=== PATIENT | male | born 1955 | race Caucasian/White ===

== ENCOUNTER 2019-03-07 12:22 | Inpatient (IN) | payer OTHER ==
[2019-03-07 16:36] VITALS: BMI 23.7
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
[2019-03-07] MEDS ORDERED: METHADONE HCL 10 MG TABLET (FOR DETOX USE ONLY) PO ONE (19:45)
[2019-03-07] MEDS ORDERED: cloNIDine HCL 0.1 MG TABLET PO PRN (19:45)
[2019-03-07] MEDS: diazePAM 5 MG TABLET PO PRN (20:32)
[2019-03-07] MEDS ORDERED: ACETAMINOPHEN 325 MG TABLET (FP) PO PRN ×2 (21:09)
[2019-03-07] MEDS ORDERED: MAGNESIUM CITRATE 300 ML BOTTLE PO PRN (21:09)
[2019-03-07] MEDS ORDERED: BISMUTH SUBSALICYLATE 524 MG/30 ML UD PO PRN (21:09)
[2019-03-07] MEDS ORDERED: METHOCARBAMOL 500 MG TABLET PO PRN (21:09)
[2019-03-07] MEDS ORDERED: hydrOXYzine PAMOATE 25 MG CAPSULE (FP) PO PRN (21:09)
[2019-03-07] MEDS ORDERED: MAGNESIUM HYDROX 2400MG/30ML ORAL SUSPENSION 30 ML CUP PO PRN (21:09)
[2019-03-07] MEDS ORDERED: MELATONIN 5 MG TABLETS PO PRN (21:09)
[2019-03-07] MEDS ORDERED: IBUPROFEN 400 MG TABLET (FP) PO PRN (21:09)
[2019-03-07] MEDS ORDERED: MAG HYDROX/AL HYDROX/SIMETH 30 ML UNIT-DOSE CUP PO PRN (21:09)
[2019-03-07] MEDS ORDERED: MENTHOL/PHENOL 1 EACH UD MM PRN (21:09)
[2019-03-07] MEDS: THIAMINE HCL 100 MG TABLET (FP) PO SCH (22:02)
--- NOTE | 2019-03-08 08:47 | PN ---
BHS COWS - Scale Resting Pulse: 0= AL 80 or Below Sweatin= Chills/Flushing Restless Observation: 3= Extraneous Movement Pupil Size: 0= Normal to Room Light Bone or Joint Aches: 1= Mild Discomfort Runny Nose/ Eye Tearin= Runny Nose/Eyes GI Upset > 30mins: 0= None Tremor Observation of Outstretched Hands: 1= Tremor [place], Not Seen Yawning Observation: 0= None Anxiety or Irritability: 4=Extreme Anxiety Goose Flesh Skin: 0=Smooth Skin COWS Score: 12 S Progress Note (SOAP) Subjective: Patient c/o interrupted sleep, chills, agitation and anxious Objective: 03/08/19 08:47 Vital Signs Temperature 98.2 F 03/08/19 06:56 Pulse Rate 76 03/08/19 06:56 Respiratory Rate 18 03/08/19 06:56 Blood Pressure 124/74 03/08/19 06:56 O2 Sat by Pulse Oximetry (%) labs pending Assessment: 03/08/19 10:43 Patient Aox3 no acute distress, anxious agitated and disruptive at the nurses station EENT WNL, Poor dentition Full ROM no gait disturbance withdrawal sx Plan: increase fluids counseled regarding unit rules and expectations, behavior contract continue detox continue to monitor
[2019-03-08] MEDS ORDERED: METHADONE HCL 5 MG TABLET (FOR DETOX USE ONLY) ONE (09:20)
[2019-03-08] MEDS ORDERED: METHADONE HCL 10 MG TABLET (FOR DETOX USE ONLY) ONE (09:20)
[2019-03-08] MEDS ORDERED: METHADONE (DETOX) 20 MG, METHADONE (DETOX) 5 MG PO ONE (10:00)
[2019-03-08] MEDS: PANTOPRAZOLE 40 MG TABLET PO SCH (10:47)
[2019-03-08] MEDS: PRENATAL VITAMINS W/ FOLIC ACID TABLET (FP) PO SCH (10:47)
[2019-03-08] MEDS: diazePAM 5 MG TABLET PO PRN ×2 (10:51→22:08)
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
[2019-03-08 11:33] LABS: HEMATOCRIT 36.9 % (35.4-49); HEMOGLOBIN 12.4 GM/dL (11.7-16.9); MCH 28.5 pg (25.7-33.7); MCHC 33.7 g/dl (32.0-35.9); MEAN CELL VOLUME 84.4 fl (80-96); MEAN PLT VOLUME 8.2 fl (7.5-11.1); PLATELET COUNT 240 K/MM3 (134-434); RBC 4.37 M/mm3 (4.00-5.60); RDW 13.7 % (11.9-15.9); WHITE BLOOD COUNT 5.9 K/mm3 (4.0-10.0)
[2019-03-08 11:47] LABS: ALBUMIN 3.1 g/dl (3.4-5.0); BILIRUBIN,TOTAL 0.4 mg/dL (0.2-1); BLOOD UREA NITROGEN 16.4 mg/dL (7-18); CALCIUM 8.8 mg/dL (8.5-10.1); CREATININE 0.8 mg/dL (0.55-1.3); POTASSIUM 3.9 mmol/L (3.5-5.1); TOT PROT 6.3 g/dl (6.4-8.2)
[2019-03-08] MEDS: NICOTINE 21 MG/24 HOURS TOPICAL PATCH TD SCH (17:35)
[2019-03-08] MEDS: THIAMINE HCL 100 MG TABLET (FP) PO SCH (22:07)
[2019-03-09] MEDS: diazePAM 5 MG TABLET PO PRN (05:06)
[2019-03-09 09:26] VITALS: BP 132/92; PULSE 58; TEMP 97.3
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
[2019-03-09] MEDS ORDERED: METHADONE HCL 10 MG TABLET (FOR DETOX USE ONLY) PO ONE (10:00)
--- NOTE | 2019-03-09 10:01 | DS ---
[facility] Detox Discharge Summary Admission Date: 03/07/19 - History Present History: Alcohol Dependence, Opioid Dependence, Sedative Dependence - Physical Exam Results Vital Signs: Vital Signs Temperature 97.3 F L 03/09/19 09:25 Pulse Rate 58 L 03/09/19 09:25 Respiratory Rate 18 03/09/19 09:25 Blood Pressure 132/92 03/09/19 09:25 O2 Sat by Pulse Oximetry (%) Pertinent Admission Physical Exam Findings: Vital Signs Temperature 97.3 F L 03/09/19 09:25 Pulse Rate 58 L 03/09/19 09:25 Respiratory Rate 18 03/09/19 09:25 Blood Pressure 132/92 03/09/19 09:25 O2 Sat by Pulse Oximetry (%) Laboratory Tests 03/08/19 03/08/19 03/08/19 08:20 08:20 08:20 WBC 5.9 RBC 4.37 Hgb 12.4 Hct 36.9 MCV 84.4 MCH 28.5 MCHC 33.7 RDW 13.7 Plt Count 240 MPV 8.2 Sodium 140 Potassium 3.9 Chloride 110 H Carbon Dioxide 26 Anion Gap 5 L BUN 16.4 Creatinine 0.8 Est GFR (CKD-EPI)AfAm 108.65 Est GFR (CKD-EPI)NonAf 93.74 Random Glucose 118 H Calcium 8.8 Total Bilirubin 0.4 AST 8 L ALT 18 Alkaline Phosphatase 69 Total Protein 6.3 L Albumin 3.1 L RPR Titer Nonreactive aaox3 ambulating no acute distress - Treatment Hospital Course: Discharged Condition Good, Rehab Referral Accepted Patient has Accepted a Rehab Referral to: referral provided - Medication Discharge Medications: Ambulatory Orders Omeprazole Magnesium [Prilosec Otc] 40 mg PO DAILY 03/07/19 - Diagnosis (1) Alcohol abuse Current Visit: Yes Status: Acute (2) Cannabis dependence Current Visit: Yes Status: Chronic (3) Substance-induced sleep disorder Current Visit: Yes Status: Acute (4) Uncomplicated opioid dependence Current Visit: Yes Status: Acute (5) Bipolar disorder Current Visit: Yes Status: Chronic (6) GERD (gastroesophageal reflux disease) Current Visit: Yes Status: Chronic Qualifiers: Esophagitis presence: without esophagitis Qualified Code(s): K21.9 - Gastro -esophageal reflux disease without esophagitis - AMA Did Patient Leave Against Medical Advice: No (Involuntary discharge )
[2019-03-09] MEDS: PRENATAL VITAMINS W/ FOLIC ACID TABLET (FP) PO SCH (10:38)
[2019-03-09] MEDS: PANTOPRAZOLE 40 MG TABLET PO SCH (10:38)
[2019-03-09] MEDS: NICOTINE 21 MG/24 HOURS TOPICAL PATCH TD SCH (10:38)
[2019-03-09] MEDS ORDERED: MIRTAZAPINE 15 MG TABLET (FP) PO SCH (22:00)
[2019-03-09] MEDS ORDERED: SUVOREXANT 10 MG TABLET PO PRN (22:00)
[2019-03-10] MEDS ORDERED: METHADONE (DETOX) 10 MG, METHADONE (DETOX) 5 MG PO ONE (10:00)
[2019-03-11] MEDS ORDERED: METHADONE HCL 10 MG TABLET (FOR DETOX USE ONLY) PO ONE (10:00)
[2019-03-12] MEDS ORDERED: METHADONE HCL 5 MG TABLET (FOR DETOX USE ONLY) PO ONE (06:00)
== END 2019-03-09 09:53 | disposition home or self-care (01) | DRG 897 ==
LOC: YASAS 12:22 → Y6N 19:45
PROVIDERS: ADMIT Allergy & Immunology; ATTEND Allergy & Immunology
PROC: HZ2ZZZZ Detoxification Services for Substance Abuse Treatment (ICD-10-PCS; principal; 2019-03-07)
DX: F11.23 Opioid dependence with withdrawal (principal); F19.282 Other psychoactive substance dependence with psychoactive substance-induced sleep disorder; F12.20 Cannabis dependence, uncomplicated; F10.10 Alcohol abuse, uncomplicated; F17.210 Nicotine dependence, cigarettes, uncomplicated; F31.9 Bipolar disorder, unspecified; F91.8 Other conduct disorders; K21.9 Gastro-esophageal reflux disease without esophagitis
CPT/HCPCS: 36415; 70491-TC; 80053; 85025; 85027; 86593; 99282-25; J0735; J1100; J7030; Q9967

== ENCOUNTER 2019-03-07 21:05 | Emergency (ER) | payer OTHER ==
[2019-03-07] MEDS ORDERED: SODIUM CHLORIDE 0.9% 1000 ML INFUS.BAG IV ONE (21:27)
--- NOTE | 2019-03-07 21:35 | PDOC ---
History of Present Illness - General Chief Complaint: Sore Throat Stated Complaint: THROAT PAIN HEROIN WITHDRAWAL Time Seen by Provider: 03/07/19 21:24 - History of Present Illness Initial Comments: 03/07/19 22:35 HPI: 63 y/o M with hx of hyperactivity/sheri (?bipolar?) and heroine abuse presenting from [facility] for throat pain. Pain started 4 days ago with the association of not swallowing properly. At the time he used a toothbrush and his fingers to try to check if there was any foreign body and caused minor bleeding that self resolved. He states his difficulty swallowing improved momentarily but then he had the opposite problem of a globus sensation causing him to swallow more. He denies any choking, chest pain, SOB, fevers, dysphagia, n/v, abd pain. Of note, he also reports congestion, post nasal drip, and rhinoorhea recently. PMHx: as noted above ROS: as noted SHx: +tobacco use; no alcohol use; heroine Allergies: NKDA ROS: GENERAL/CONSTITUTIONAL: No fever or chills. No weakness. HEAD, EYES, EARS, NOSE AND THROAT: No change in vision. No ear pain or discharge. +throat pain CARDIOVASCULAR: No chest pain or shortness of breath RESPIRATORY: No cough, wheezing, or hemoptysis. GASTROINTESTINAL: No nausea, vomiting, diarrhea or constipation. GENITOURINARY: No dysuria, frequency, or change in urination. MUSCULOSKELETAL: No joint or muscle swelling or pain. No neck or back pain. SKIN: No rash NEUROLOGIC: No headache, vertigo, loss of consciousness, or change in strength/ sensation. ENDOCRINE: No increased thirst. No abnormal weight change HEMATOLOGIC/LYMPHATIC: No anemia, easy bleeding, or history of blood clots. ALLERGIC/IMMUNOLOGIC: No hives or skin allergy. PE: GENERAL: Awake, alert, and fully oriented, no acute distress HEAD: No signs of trauma, normocephalic, atraumatic EYES: EOMI, sclera anicteric, conjunctiva clear ENT: Auricles normal inspection, hearing grossly normal, nares patent, oropharynx clear without exudates. Moist mucosa NECK: Normal ROM, no lymphadenopathy, stridor on BL neck auscultation LUNGS: No increased work of breathing, symmetrical chest rise, clear to auscultation bilaterally, no wheezes, crackles or rhonchi HEART: Regular rate and rhythm, normal S1 and S2, no murmur, peripheral pulses 2 + and equal bilaterally. ABDOMEN: Soft, nondistended, nontender, normoactive bowel sounds. No guarding, no rebound. No masses. No CVAT MUSCULOSKELETAL: Normal inspection, FROM NEUROLOGICAL: Cranial nerves II through XII grossly intact. Normal speech, normal gait, no focal sensorimotor deficits SKIN: Warm, Dry, normal turgor, no rashes or lesions noted Past History - Past Medical History Allergies/Adverse Reactions: Allergies Allergy/AdvReac Type Severity Reaction Status Date / Time No Known Allergies Allergy Verified 03/07/19 21:32 Home Medications: Ambulatory Orders Diazepam [Valium] 15 mg PO BID 03/07/19 Omeprazole Magnesium [Prilosec Otc] 40 mg PO DAILY 03/07/19 Sennosides [Senno] 8.6 mg PO PRN PRN 03/07/19 Asthma: No Cardiac Disorders: No COPD: Yes Diabetes: No GI Disorders: No HTN: No Psychiatric Problems: Yes (depression, schizoaffective) Seizures: No - Immunization History Immunization Up to Date: No - Psycho Social/Smoking Cessation Hx Smoking History: Unknown if ever smoked Hx Alcohol Use: No Drug/Substance Use Hx: Yes (heroin) *Physical Exam - Vital Signs Last Vital Signs Temp Pulse Resp BP Pulse Ox 99 F 82 18 122/90 98 03/07/19 21:20 03/07/19 21:20 03/07/19 21:20 03/07/19 21:20 03/07/19 21:20 ED Treatment Course - LABORATORY CBC & Chemistry Diagram: 03/07/19 22:20 03/07/19 22:20 Medical Decision Making - Medical Decision Making 03/08/19 02:09 63 y/o M with hx of hyperactivity/sheri (?bipolar?) and heroine abuse presenting from [facility] for throat pain following thrusting a toothbrush into his throat for relief of persistent throat pain. VSS, AF. PE with stridor of BL neck aucsultation. will ruleout retrophayngeal abscess/hematoma -cbc, cmp -ct neck with iv contrast -obdulia irizarry 03/08/19 02:13 CT with no acute findings will DC back to [facility] plan discussed with patient and no other concerns at this time Discharge - Discharge Information Problems reviewed: Yes Clinical Impression/Diagnosis: Throat pain Condition: Stable Disposition: HOME - Follow up/Referral Referrals: ON STAFF,NOT [Primary Care Provider] - - Patient Discharge Instructions Patient Printed Discharge Instructions: DI for Contusion - Post Discharge Activity
[2019-03-07 21:36] VITALS: BP 122/90; PULSE 82; TEMP 99; BMI 25.8
[2019-03-07] MEDS ORDERED: DEXAMETHASONE SOD PHOSPHATE 10 MG/1 ML VIAL IVPUSH ONE (21:54)
[2019-03-07] MEDS ORDERED: DEXAMETHASONE SOD PHOSPHATE 10 MG/1 ML VIAL ONE (22:05)
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
[2019-03-07 22:49] LABS: BASO % 1.1 % (0-2.0); EOS % 1.8 % (0-4.5); HEMATOCRIT 37.5 % (35.4-49); HEMOGLOBIN 12.8 GM/dL (11.7-16.9); LYMPH % 20.9 % (8-40); MCH 28.6 pg (25.7-33.7); MCHC 34.1 g/dl (32.0-35.9); MONO % 8.5 % (3.8-10.2); NEUT % 67.7 % (42.8-82.8); PLATELET COUNT 223 K/MM3 (134-434); RBC 4.46 M/mm3 (4.00-5.60); RDW 13.7 % (11.9-15.9); WHITE BLOOD COUNT 5.6 K/mm3 (4.0-10.0)
[2019-03-07 23:23] LABS: ALBUMIN 3.5 g/dl (3.4-5.0); BILIRUBIN,TOTAL 0.3 mg/dL (0.2-1); BLOOD UREA NITROGEN 14.4 mg/dL (7-18); CALCIUM 8.9 mg/dL (8.5-10.1); CREATININE 0.9 mg/dL (0.55-1.3); POTASSIUM 3.8 mmol/L (3.5-5.1); TOT PROT 7.2 g/dl (6.4-8.2)
[2019-03-07] MEDS ORDERED: hydrOXYzine PAMOATE 25 MG CAPSULE (FP) PO ONE (23:48)
== END 2019-03-08 03:22 | disposition home or self-care (01) ==
LOC: SUPCPDRO 21:05 → JER 21:05
PROC: 3E033GC Introduction of Other Therapeutic Substance into Peripheral Vein, Percutaneous Approach (ICD-10-PCS; principal; 2019-03-07)
PROC: 3E0337Z Introduction of Electrolytic and Water Balance Substance into Peripheral Vein, Percutaneous Approach (ICD-10-PCS; 2019-03-07)
DX: R07.0 Pain in throat (principal); F31.9 Bipolar disorder, unspecified; F11.10 Opioid abuse, uncomplicated
CPT/HCPCS: 36415; 70491-TC; 80053; 85025; 99282-25; J1100; J7030; Q9967

== ENCOUNTER 2020-09-16 12:44 | Inpatient (IN) | payer OTHER ==
[2020-09-16 13:28] VITALS: BMI 23.1
[2020-09-16] MEDS ORDERED: BISMUTH SUBSALICYLATE 262 MG/15 ML BTL PO PRN (13:58)
[2020-09-16] MEDS ORDERED: MAG HYDROX/AL HYDROX/SIMETH 30 ML UNIT-DOSE CUP PO PRN (13:58)
[2020-09-16] MEDS ORDERED: MAGNESIUM CITRATE 300 ML BOTTLE PO PRN (13:58)
[2020-09-16] MEDS ORDERED: NICOTINE POLACRILEX 2 MG GUM BUC PRN (13:58)
[2020-09-16] MEDS ORDERED: IBUPROFEN 400 MG TABLET (FP) PO PRN (13:58)
[2020-09-16] MEDS ORDERED: cloNIDine HCL 0.1 MG TABLET PO PRN (13:58)
[2020-09-16] MEDS ORDERED: ONDANSETRON *ODT* 4 MG TABLET SL PRN (13:58)
[2020-09-16] MEDS ORDERED: MENTHOL/PHENOL 1 EACH UD MM PRN (13:58)
[2020-09-16] MEDS ORDERED: methaDONE HCL 10 MG TABLET (FOR DETOX USE ONLY) PO ONE (13:58)
[2020-09-16] MEDS ORDERED: ACETAMINOPHEN 325 MG TABLET (FP) PO PRN (13:58)
[2020-09-16] MEDS ORDERED: MAGNESIUM HYDROX 2400MG/30ML ORAL SUSPENSION 30 ML CUP PO PRN (13:58)
[2020-09-16] MEDS ORDERED: diazePAM 5 MG TABLET PO PRN ×2 (14:03→18:14)
[2020-09-16] MEDS ORDERED: PATIENT'S OWN MEDICATION (NON-FORMULARY) (Omeprazole Magnesium [Prilosec Otc] 20 MG Tablet PO SCH (14:15)
[2020-09-16] MEDS: hydrOXYzine PAMOATE 25 MG CAPSULE (FP) PO SCH ×3 (14:59→23:04)
[2020-09-16] MEDS: PRENATAL VITAMINS W/ FOLIC ACID TABLET (FP) PO SCH (14:59)
[2020-09-16] MEDS: NICOTINE 7 MG/24 HOURS TOPICAL PATCH TD SCH (15:02)
[2020-09-16] MEDS ORDERED: TRIMETHOBENZAMIDE HCL 300 MG CAPSULE PO PRN (15:35)
[2020-09-16 15:44] LABS: HEMATOCRIT 39.7 % (35.4-49); HEMOGLOBIN 13.6 GM/dL (11.7-16.9); MCH 28.1 pg (25.7-33.7); MCHC 34.3 g/dl (32.0-35.9); MEAN CELL VOLUME 82.1 fl (80-96); PLATELET COUNT 295 10^3/uL (134-434); RBC 4.83 M/mm3 (4.00-5.60); RDW 15.2 % (11.9-15.9); WHITE BLOOD COUNT 10.6 K/mm3 (4.0-10.0)
[2020-09-16 15:50] LABS: CALCIUM 9.4 mg/dL (8.5-10.1)
[2020-09-16 15:51] LABS: BLOOD UREA NITROGEN 12.6 mg/dL (7-18)
[2020-09-16 15:54] LABS: CREATININE 0.9 mg/dL (0.55-1.3)
[2020-09-16 15:55] LABS: BILIRUBIN,TOTAL 0.5 mg/dL (0.2-1); TOT PROT 7.9 g/dl (6.4-8.2)
[2020-09-16] MEDS: ATORVASTATIN CA 10 MG TABLET (FP) PO SCH (22:26)
[2020-09-16] MEDS: THIAMINE HCL 100 MG TABLET (FP) PO SCH (22:26)
[2020-09-16] MEDS: METHOCARBAMOL 500 MG TABLET PO PRN (22:28)
[2020-09-16] MEDS: MELATONIN 5 MG TABLETS PO SCH (22:29)
[2020-09-17] MEDS: ACETAMINOPHEN 325 MG TABLET (FP) PO PRN (02:55)
[2020-09-17] MEDS: hydrOXYzine PAMOATE 25 MG CAPSULE (FP) PO SCH ×2 (05:31→10:12)
[2020-09-17] MEDS ORDERED: PANTOPRAZOLE 40 MG TABLET PO SCH (10:00)
[2020-09-17] MEDS ORDERED: FAMOTIDINE 10 MG TABLET PO SCH (10:00)
[2020-09-17] MEDS ORDERED: methaDONE HCL 10 MG TABLET (FOR DETOX USE ONLY) ONE (10:02)
[2020-09-17] MEDS: PRENATAL VITAMINS W/ FOLIC ACID TABLET (FP) PO SCH (10:11)
[2020-09-17] MEDS: METHOCARBAMOL 500 MG TABLET PO PRN (10:12)
[2020-09-17] MEDS: NICOTINE 7 MG/24 HOURS TOPICAL PATCH TD SCH (10:13)
[2020-09-17] MEDS ORDERED: hydrOXYzine PAMOATE 25 MG CAPSULE (FP) PO PRN (10:38)
[2020-09-17] MEDS: diazePAM 5 MG TABLET PO PRN ×2 (12:01→22:24)
[2020-09-17] MEDS: FAMOTIDINE 20 MG TABLET PO SCH ×2 (12:01→22:22)
[2020-09-17] MEDS: SENNOSIDES 8.6MG TABLET (FP) PO SCH ×2 (12:01→22:51)
[2020-09-17] MEDS: TIOTROPIUM BROMIDE 2.5 MCG (SPIRIVA) RESPIMAT INHALER IH SCH (12:02)
[2020-09-17] MEDS: DOCUSATE SODIUM 100 MG CAPSULE (FP) PO SCH ×2 (14:55→22:22)
[2020-09-17] MEDS: MELATONIN 5 MG TABLETS PO SCH (22:19)
[2020-09-17] MEDS: THIAMINE HCL 100 MG TABLET (FP) PO SCH (22:20)
[2020-09-17] MEDS: MIRTAZAPINE 15 MG TABLET (FP) PO SCH (22:20)
[2020-09-17] MEDS: ATORVASTATIN CA 10 MG TABLET (FP) PO SCH (22:21)
[2020-09-18] MEDS: DOCUSATE SODIUM 100 MG CAPSULE (FP) PO SCH ×3 (05:26→22:17)
[2020-09-18] MEDS: ACETAMINOPHEN 325 MG TABLET (FP) PO PRN (06:50)
[2020-09-18] MEDS ORDERED: methaDONE HCL 10 MG TABLET (FOR DETOX USE ONLY) PO ONE (10:00)
[2020-09-18] MEDS: FAMOTIDINE 20 MG TABLET PO SCH ×2 (10:29→22:18)
[2020-09-18] MEDS: diazePAM 5 MG TABLET PO PRN ×2 (10:30→22:16)
[2020-09-18] MEDS: NICOTINE 7 MG/24 HOURS TOPICAL PATCH TD SCH (10:30)
[2020-09-18] MEDS: PRENATAL VITAMINS W/ FOLIC ACID TABLET (FP) PO SCH (10:30)
[2020-09-18 10:31] LABS: HEMATOCRIT 39.6 % (35.4-49); HEMOGLOBIN 13.5 GM/dL (11.7-16.9); MCH 28.5 pg (25.7-33.7); MCHC 34.2 g/dl (32.0-35.9); MEAN CELL VOLUME 83.6 fl (80-96); MEAN PLT VOLUME 7.9 fl (7.5-11.1); PLATELET COUNT 257 10^3/uL (134-434); RBC 4.74 M/mm3 (4.00-5.60); RDW 15.4 % (11.9-15.9)
[2020-09-18] MEDS: TIOTROPIUM BROMIDE 2.5 MCG (SPIRIVA) RESPIMAT INHALER IH SCH (10:35)
[2020-09-18] MEDS: SENNOSIDES 8.6MG TABLET (FP) PO SCH ×2 (10:50→23:11)
[2020-09-18] MEDS: MELATONIN 5 MG TABLETS PO SCH (22:12)
[2020-09-18] MEDS: THIAMINE HCL 100 MG TABLET (FP) PO SCH (22:12)
[2020-09-18] MEDS: METHOCARBAMOL 500 MG TABLET PO PRN (22:15)
[2020-09-18] MEDS: MIRTAZAPINE 15 MG TABLET (FP) PO SCH (22:15)
[2020-09-18] MEDS: ATORVASTATIN CA 10 MG TABLET (FP) PO SCH (22:17)
[2020-09-19] MEDS ORDERED: MASKS NR ONE (05:37)
[2020-09-19] MEDS: DOCUSATE SODIUM 100 MG CAPSULE (FP) PO SCH ×3 (05:38→22:44)
[2020-09-19] MEDS ORDERED: methaDONE HCL 10 MG TABLET (FOR DETOX USE ONLY) ONE (09:09)
[2020-09-19] MEDS: TIOTROPIUM BROMIDE 2.5 MCG (SPIRIVA) RESPIMAT INHALER IH SCH (09:44)
[2020-09-19] MEDS: diazePAM 5 MG TABLET PO PRN ×2 (09:45→22:48)
[2020-09-19] MEDS: ASPIRIN 81 MG CHEWABLE TABLETS PO SCH (09:46)
[2020-09-19] MEDS: FAMOTIDINE 20 MG TABLET PO SCH ×2 (09:46→22:44)
[2020-09-19] MEDS: PRENATAL VITAMINS W/ FOLIC ACID TABLET (FP) PO SCH (09:46)
[2020-09-19] MEDS: NICOTINE 7 MG/24 HOURS TOPICAL PATCH TD SCH (09:47)
[2020-09-19] MEDS: SENNOSIDES 8.6MG TABLET (FP) PO SCH ×2 (10:51→22:44)
[2020-09-19] MEDS: NICOTINE 10 MG CARTRIDGE (INHALER) IH PRN ×2 (13:36→19:53)
[2020-09-19] MEDS: ATORVASTATIN CA 10 MG TABLET (FP) PO SCH (22:44)
[2020-09-19] MEDS: THIAMINE HCL 100 MG TABLET (FP) PO SCH (22:44)
[2020-09-19] MEDS: MIRTAZAPINE 15 MG TABLET (FP) PO SCH (22:44)
[2020-09-19] MEDS: MELATONIN 5 MG TABLETS PO SCH (22:45)
[2020-09-20] MEDS: DOCUSATE SODIUM 100 MG CAPSULE (FP) PO SCH ×3 (05:32→22:24)
[2020-09-20] MEDS: NICOTINE 10 MG CARTRIDGE (INHALER) IH PRN ×5 (05:32→22:21)
[2020-09-20] MEDS ORDERED: methaDONE HCL 10 MG TABLET (FOR DETOX USE ONLY) PO ONE (10:00)
[2020-09-20] MEDS: FAMOTIDINE 20 MG TABLET PO SCH ×2 (10:56→22:24)
[2020-09-20] MEDS: SENNOSIDES 8.6MG TABLET (FP) PO SCH ×2 (10:56→22:24)
[2020-09-20] MEDS: ASPIRIN 81 MG CHEWABLE TABLETS PO SCH (10:56)
[2020-09-20] MEDS: NICOTINE 7 MG/24 HOURS TOPICAL PATCH TD SCH (10:57)
[2020-09-20] MEDS: PRENATAL VITAMINS W/ FOLIC ACID TABLET (FP) PO SCH (10:57)
[2020-09-20] MEDS: TIOTROPIUM BROMIDE 2.5 MCG (SPIRIVA) RESPIMAT INHALER IH SCH (10:58)
[2020-09-20] MEDS: MIRTAZAPINE 15 MG TABLET (FP) PO SCH (22:23)
[2020-09-20] MEDS: ATORVASTATIN CA 10 MG TABLET (FP) PO SCH (22:23)
[2020-09-20] MEDS: THIAMINE HCL 100 MG TABLET (FP) PO SCH (22:24)
[2020-09-20] MEDS: MELATONIN 5 MG TABLETS PO SCH (22:24)
[2020-09-21] MEDS: DOCUSATE SODIUM 100 MG CAPSULE (FP) PO SCH (05:34)
[2020-09-21] MEDS: NICOTINE 10 MG CARTRIDGE (INHALER) IH PRN (05:34)
[2020-09-21] MEDS: ASPIRIN 81 MG CHEWABLE TABLETS PO SCH (09:58)
[2020-09-21] MEDS: PRENATAL VITAMINS W/ FOLIC ACID TABLET (FP) PO SCH (09:58)
[2020-09-21] MEDS: SENNOSIDES 8.6MG TABLET (FP) PO SCH (09:58)
[2020-09-21] MEDS: TIOTROPIUM BROMIDE 2.5 MCG (SPIRIVA) RESPIMAT INHALER IH SCH (09:58)
[2020-09-21] MEDS: FAMOTIDINE 20 MG TABLET PO SCH (09:58)
[2020-09-21] MEDS: NICOTINE 7 MG/24 HOURS TOPICAL PATCH TD SCH (09:58)
[2020-09-21 10:01] VITALS: BP 160/97; PULSE 94; TEMP 96.8
== END 2020-09-21 09:29 | disposition home or self-care (01) | DRG 897 ==
LOC: YASAS 12:44 → Y3N 14:04
PROVIDERS: ADMIT Allergy & Immunology; ATTEND Allergy & Immunology
PROC: HZ2ZZZZ Detoxification Services for Substance Abuse Treatment (ICD-10-PCS; principal; 2020-09-16)
DX: F11.23 Opioid dependence with withdrawal (principal); F17.210 Nicotine dependence, cigarettes, uncomplicated; F31.9 Bipolar disorder, unspecified; E78.5 Hyperlipidemia, unspecified; J44.9 Chronic obstructive pulmonary disease, unspecified; K59.00 Constipation, unspecified; K21.9 Gastro-esophageal reflux disease without esophagitis; R73.9 Hyperglycemia, unspecified; R03.0 Elevated blood-pressure reading, without diagnosis of hypertension; G47.00 Insomnia, unspecified; Z56.0 Unemployment, unspecified
CPT/HCPCS: 36415; 80053; 82947; 85027; 86780; 93005; 93010; C9803; U0003; U0005